=== PATIENT | female | born 1995 | race Caucasian/White ===

== ENCOUNTER 2022-03-11 19:05 | Emergency (ER) | payer OTHER ==
[2022-03-11] MEDS ORDERED: cefTRIAXone 1 GM, Lidocaine 1% 2.1 ML IM ONE ×2 (20:26)
[2022-03-11] MEDS ORDERED: Ketorolac 30 MG/ML SDV IM ONE (20:28)
== END 2022-03-11 21:17 | disposition home or self-care (01) ==
LOC: JP.ED 19:05
DX: K51.90 Ulcerative colitis, unspecified, without complications (principal); N39.0 Urinary tract infection, site not specified; Z92.25 Personal history of immunosuppression therapy
CPT/HCPCS: 81001; 87086; 87088; 87186; 96372; 99283; J0696; J1885; 99282